=== PATIENT | female | born 1955 | race Caucasian/White ===

== ENCOUNTER 2017-05-28 10:30 | Emergency (ER) | payer OTHER ==
[~2017-05-28] VITALS: Ht 167.6 cm; Wt 80.8 kg
[2017-05-28 10:59] LABS: HEMATOCRIT 47.2 % (36.0-46.0); HEMOGLOBIN 15.2 G/DL (11.9-15.5); MCH 28.5 PG (29.0-34.0); MCHC 32.2 G/DL (30.0-36.0); MCV 88.6 FL (83-99); PLATELET COUNT 296 K/uL (156-360); RBC DIS.WIDTH-CV 14.3 % (11.8-14.6); RBC DIS.WIDTH-SD 46.3 % (39-53); RED BLOOD COUNT 5.33 M/uL (3.80-5.20); WHITE BLOOD COUNT 7.7 K/uL (4.1-10.2)
[2017-05-28 11:08] LABS: ALBUMIN 4.3 g/dL (3.2-4.8); CHLORIDE 104 mEq/L (99-109); SODIUM 133 mEq/L (136-147)
[2017-05-28 11:10] LABS: GLUCOSE 218 mg/dL (70-99)
[2017-05-28 11:11] LABS: TOTAL PROTEIN 7.8 g/dL (6.4-8.3)
[2017-05-28 11:12] LABS: TOTAL BILIRUBIN 0.4 mg/dL (0.0-1.0)
[2017-05-28 11:14] LABS: ALKALINE PHOSPHATASE 66 IU/L (3-129); GFR ESTIMATE (CALCULATED) > 59 mL/min/
[2017-05-28 11:15] LABS: UREA NITROGEN (BUN) 26 mg/dL (9-23)
[2017-05-28 11:16] LABS: AST (GOT) 24 IU/L (2-34)
[2017-05-28 11:17] LABS: ALT (GPT) 29 IU/L (3-49)
[2017-05-28] MEDS ORDERED: ZOFRAN4 MG PO (12:27)
[2017-05-28 13:08] VITALS: BP 129/77
== END 2017-05-28 13:11 | disposition home or self-care (01) ==
LOC: EME 10:30
PROVIDERS: Emergency Medicine
DX: B34.9 Viral infection, unspecified (principal); R11.2 Nausea with vomiting, unspecified; E11.65 Type 2 diabetes mellitus with hyperglycemia; I10 Essential (primary) hypertension; Z87.891 Personal history of nicotine dependence
CPT/HCPCS: 80053; 82800; 83930; 85027; 99281; 99284